=== PATIENT | male | born 1990 | race Two or more races ===

== ENCOUNTER 2018-05-30 16:42 | Emergency (ER) | payer OTHER ==
[~2018-05-30] VITALS: Ht 170.2 cm; Wt 76.2 kg
[~2018-05-30 16:42] MED LIST: BUSP15TA3 PO; SERT50TA PO
--- NOTE | 2018-05-30 17:00 | NUR ---
BB friend to ER for agitation since last night; took crystal meth 4 days ago
[2018-05-30] MEDS ORDERED: BUPR1FIL3 SL (17:02)
[2018-05-30] MEDS ORDERED: QUET200T3 PO (17:02)
[2018-05-30] MEDS ORDERED: HALOPERIDOL LACTATE INJ 5 MG/ML VIAL ONE (17:14)
[2018-05-30] MEDS ORDERED: diphenhydrAMINE HCL 50 MG/ML VIAL ONE (17:14)
[2018-05-30] MEDS ORDERED: LORAZEPAM INJ 2 MG/ML VIAL ONE (17:15)
[2018-05-30 17:28] LABS: BASOPHILS # (AUTO) 0.3 /CMM (0.0-0.2); BASOPHILS % (AUTO) 2.8 % (0.0-2.0); EOSINOPHILS % (AUTO) 0.7 % (0.0-6.0); HEMATOCRIT 41 % (39-51); HEMOGLOBIN 13.4 g/dL (13.5-17.5); LYMPHOCYTES # (AUTO) 2.4 /CMM (0.8-4.8); LYMPHOCYTES % (AUTO) 26.3 % (20.0-44.0); MEAN CORPUSCULAR HEMOGLOBIN 30 PG (26.0-33.0); MEAN CORPUSCULAR HGB CONC 33 g/dl (31.0-36.0); MEAN CORPUSCULAR VOLUME 91 fL (80-96); MONOCYTES # (AUTO) 0.6 /CMM (0.1-1.30); NEUTROPHILS # (AUTO) 5.8 /CMM (1.8-8.9); NEUTROPHILS % (AUTO) 64.2 % (43.0-81.0); PLATELET COUNT (AUTO) 266 /CMM (150-450); RDW COEFFICIENT OF VARIATION 12.2 (11.5-15.0); RED BLOOD CELL COUNT(AUTO) 4.47 MIL/uL (4.5-6.0); WHITE BLOOD COUNT (AUTO) 9.2 K/uL (4.3-11.0)
--- NOTE | 2018-05-30 17:28 | NUR ---
all medications given as ordered
[2018-05-30] MEDS ORDERED: HALOPERIDOL LACTATE INJ 5 MG/ML VIAL IM ONE (17:30)
[2018-05-30] MEDS ORDERED: diphenhydrAMINE HCL 50 MG/ML VIAL IV ONE (17:30)
[2018-05-30] MEDS ORDERED: LORAZEPAM INJ 2 MG/ML VIAL IVP ONE (17:30)
[2018-05-30] MEDS ORDERED: IV NS 0.9% 1,000 ML BAG IV ONE (17:30)
--- NOTE | 2018-05-30 17:32 | NUR ---
cardiac monitoring initaited
[2018-05-30 17:36] LABS: CALCIUM, SERUM 9.3 mg/dL (8.5-10.1); CARBON DIOXIDE 26 mmol/L (21-32); CHLORIDE 97 mmol/L (98-107); GLUCOSE 99 mg/dL (74-106); POTASSIUM 3.7 mmol/L (3.5-5.1); SODIUM SERUM 131 mmol/L (136-145); UREA NITROGEN, BLOOD 22 mg/dL (7-18)
[2018-05-30 17:42] LABS: ALANINE AMINOTRANSFERASE 144 U/L (12-78); ALBUMIN 3.9 g/dL (3.4-5.0); ALKALINE PHOSPHATASE 60 U/L (46-116); ASPARTATE AMINOTRANSFERASE 93 U/L (15-37); BILIRUBIN,DIRECT 0.3 mg/dL (0.0-0.2); BILIRUBIN,TOTAL 1.1 mg/dL (0.2-1.0); SALICYLATE 3.5 mg/dL (2.8-20.0); TOTAL PROTEIN, SERUM 8.2 g/dL (6.4-8.2)
[2018-05-30 17:43] LABS: ACETAMINOPHEN < 2 ug/ml (10-30); ALCOHOL, BLOOD < 3 mg/dL (0-0)
--- NOTE | 2018-05-30 18:01 | NUR ---
urine sent lab
--- NOTE | 2018-05-30 18:02 | NUR ---
the patient DENIES suicodal thoughts
--- NOTE | 2018-05-30 18:02 | NUR ---
off restraints; the patient is NOT agitated; friend at bedside- very supportive
[2018-05-30 18:47] LABS: APPEARANCE,URINE Cloudy (CLEAR); BILIRUBIN,URINE SMALL (NEGATIVE); BLOOD, URINE Large Ery/uL (NEGATIVE); COLOR,URINE Dark (YELLOW); KETONES,URINE 15 (NEGATIVE); LEUKOCYTE ESTERASE ,URINE Small (NEGATIVE); NITRITE, URINE Positive (NEGATIVE); PROTEIN,URINE >=300 mg/dl (NEGATIVE); UGLUCOSE Negative (NEGATIVE)
[2018-05-30 19:03] LABS: BACTERIA,URINE Many /HPF (None Seen); RBC,URINE 21-50 /HPF (0-2); SQUAMOUS EPITHELIAL CELL,UR Rare /HPF (None Seen); WBC,URINE TOO NUMEROUS TO COUN /HPF (0-3)
[2018-05-30 19:04] LABS: MUCUS,URINE Few /LPF (None Seen); URINE AMORPHOUS URATE Few /HPF (None Seen)
--- NOTE | 2018-05-30 20:30 | NUR ---
ASSUMED D/C CARE ONLY AT THIS TIME. PT EVALUATED BY SCARLETT/LEXA AND CLEARED FOR D/C. PT MEDICALLY AND MENTALLY CLEARED. DENIES ANY MEDICAL SX'S/SI/HI. NON DIAPHORETIC. RESP EVEN AND UNLABORED. [employer] SUPERVISOR AT BEDSIDE TO TAKE PT HOME. Patient discharged to home in stable condition. Written and verbal after care instructions given. Patient verbalizes understanding of instruction. Ambulatory with a steady gait IV removed. Catheter intact and site benign. Pressure and 4x4 applied to site. No bleeding noted.
[2018-05-30 20:37] VITALS: BP 121/70
== END 2018-05-30 20:40 | disposition home or self-care (01) ==
LOC: ER 16:45
DX: R45.851 Suicidal ideations (principal); F20.9 Schizophrenia, unspecified; F32.9 Major depressive disorder, single episode, unspecified; Z79.899 Other long term (current) drug therapy
CPT/HCPCS: 36415; 80048; 80076; 80305; 80329; 81001; 85025; 96372; 96374; 96375; 99284; A4606; G0480 ×2; J1200; J1630; J2060; J7030; Z7610; 81000-TC

== ENCOUNTER 2018-06-11 20:48 | Emergency (ER) | payer OTHER ==
[~2018-06-11 20:48] MED LIST changes: +BUPR1FIL3 SL; -BUSP15TA3 PO; +QUET200T3 PO; -SERT50TA PO
--- NOTE | 2018-06-11 20:54 | NUR ---
PATIENT CALLED, NO ANSWER IN WAITING ROOM. SECURITY STATED PATIENT IS OUTSIDE IN THE PARKING LOT.
--- NOTE | 2018-06-11 21:14 | NUR ---
CALLED PATIENT IN WAITING AREA, NO ANSWER.
== END 2018-06-11 21:17 | disposition left against medical advice (07) ==
LOC: ER 20:52
DX: Z53.21 Procedure and treatment not carried out due to patient leaving prior to being seen by health care provider (principal)

== ENCOUNTER 2018-06-11 22:34 | Emergency (ER) | payer OTHER ==
--- NOTE | 2018-06-11 22:44 | NUR ---
PATIENT NOT IN WAITING ROOM.
--- NOTE | 2018-06-11 23:31 | NUR ---
PATIENT CALLED, NO ANSWER IN THE WAITING ROOM.
== END 2018-06-11 23:37 | disposition left against medical advice (07) ==
LOC: ER 22:38
DX: Z53.21 Procedure and treatment not carried out due to patient leaving prior to being seen by health care provider (principal)

== ENCOUNTER 2020-04-22 11:08 | Emergency (ER) | payer OTHER ==
[~2020-04-22] VITALS: Ht 177.8 cm; Wt 81.6 kg
[~2020-04-22 11:08] MED LIST changes: -QUET200T3 PO; +QUET200T5 PO
[2020-04-22 11:15] VITALS: BP 126/75
--- NOTE | 2020-04-22 11:23 | NUR ---
AT BEDSIDE FOR EVAL.
[2020-04-22] MEDS ORDERED: ACETAMINOPHEN ES 500 MG TABLET PO ONE (11:30)
[2020-04-22] MEDS ORDERED: ACETAMINOPHEN ES 500 MG TABLET ONE (11:35)
--- NOTE | 2020-04-22 11:40 | NUR ---
FOOD TRAY PROVIDED.
--- NOTE | 2020-04-22 11:45 | NUR ---
Patient given written and verbal discharge instructions. Patient verbalizes understanding of instructions. Patient is ambulatory with steady gait. Refuses offer of detention placement. Patient given list of available shelters in surrounding area.
== END 2020-04-22 11:54 | disposition home or self-care (01) ==
LOC: ER 11:10
DX: S90.822A Blister (nonthermal), left foot, initial encounter (principal); S90.821A Blister (nonthermal), right foot, initial encounter; F20.9 Schizophrenia, unspecified; F32.9 Major depressive disorder, single episode, unspecified; F17.200 Nicotine dependence, unspecified, uncomplicated; Z60.2 Problems related to living alone; Z59.0 Homelessness; Z79.899 Other long term (current) drug therapy; X58.XXXA Exposure to other specified factors, initial encounter; Y93.01 Activity, walking, marching and hiking; Y92.89 Other specified places as the place of occurrence of the external cause; Y99.8 Other external cause status

== ENCOUNTER 2022-07-08 05:34 | Emergency (ER) | payer BC, OTHER ==
[~2022-07-08] VITALS: Ht 175.3 cm; Wt 63.5 kg
--- NOTE | 2022-07-08 06:07 | NUR ---
BIBRA 61 FOR CHRONIC L FOOT WOUND. PT AGGITATED AND YELLING ON ASSESSMENT AND POOR HISTORIAN REQUESTING FOOD.
[2022-07-08] MEDS ORDERED: IBUPROFEN 600 MG TABLET PO ONE (06:30)
[2022-07-08] MEDS ORDERED: IBUPROFEN 600 MG TABLET ONE (06:32)
--- NOTE | 2022-07-08 06:41 | NUR ---
poc [phone]
--- NOTE | 2022-07-08 06:51 | NUR ---
XRAY AT BEDSIDE
[2022-07-08] MEDS ORDERED: CEPH500C2 PO (08:37)
[2022-07-08] MEDS ORDERED: IBUP-1953 PO (08:37)
--- NOTE | 2022-07-08 08:40 | NUR ---
WOUND CARE AT BEDSIDE
--- NOTE | 2022-07-08 09:48 | NUR ---
Patient discharged to home in stable condition. Written and verbal after care instructions given. Patient verbalizes understanding of instruction.
[2022-07-08 09:54] VITALS: BP 135/69
== END 2022-07-08 09:55 | disposition home or self-care (01) ==
LOC: ER 05:35
DX: S82.492A Other fracture of shaft of left fibula, initial encounter for closed fracture (principal); L97.329 Non-pressure chronic ulcer of left ankle with unspecified severity; F32.A Depression, unspecified; F20.9 Schizophrenia, unspecified; F17.200 Nicotine dependence, unspecified, uncomplicated; Z59.00 Homelessness unspecified; Z79.899 Other long term (current) drug therapy; W10.9XXA Fall (on) (from) unspecified stairs and steps, initial encounter; Y93.89 Activity, other specified; Y92.89 Other specified places as the place of occurrence of the external cause; Y99.8 Other external cause status
CPT/HCPCS: 99284; 73610; 82962; A6253

== ENCOUNTER 2022-07-08 11:55 | Emergency (ER) | payer BC, OTHER ==
[~2022-07-08] VITALS: Ht 175.3 cm; Wt 63.5 kg
[~2022-07-08 11:55] MED LIST changes: +CEPH500C2 PO; +IBUP-1953 PO
[2022-07-08 13:30] VITALS: BP 114/65
--- NOTE | 2022-07-08 15:07 | NUR ---
PER DR SHAIKH, OK FOR PT TO SLEEP FOR NOW THEN DISCHARGE LATER WHEN STABLE.
--- NOTE | 2022-07-08 16:51 | NUR ---
Patient discharged to home/homeless in stable condition. Written and verbal after care instructions given. Patient refused homeless waiver/resources.
== END 2022-07-08 16:52 | disposition home or self-care (01) ==
LOC: ER 12:02
DX: G89.29 Other chronic pain (principal); Z72.820 Sleep deprivation; F32.A Depression, unspecified; F20.9 Schizophrenia, unspecified; F17.200 Nicotine dependence, unspecified, uncomplicated; Z59.00 Homelessness unspecified; Z79.899 Other long term (current) drug therapy